=== PATIENT | male | born 1950 | race Caucasian/White ===

== ENCOUNTER 2017-04-23 07:25 | Inpatient (IN) | payer BC, OTHER ==
[2017-04-15 15:51] VITALS: BMI 26.0
[2017-04-23] MEDS ORDERED: CEFAZOLIN 2 GM/D5W 50 ML IVPB ONE (07:40)
[2017-04-23] MEDS ORDERED: TRANEXAMIC ACID 1000 MG/10 ML VIAL IVPUSH ONE (07:40)
[2017-04-23] MEDS ORDERED: GABAPENTIN 300 MG CAPSULE (FP) PO ONE (07:40)
[2017-04-23] MEDS ORDERED: CELECOXIB 200 MG CAPSULE PO ONE (08:04)
[2017-04-23] MEDS ORDERED: oxyCODONE HCL 10 MG SUSTAINED ACTING TABLET PO ONE (08:04)
[2017-04-23] MEDS ORDERED: ceFAZolin SODIUM 1 GM VIAL ONE (10:10)
[2017-04-23] MEDS ORDERED: TRANEXAMIC ACID 1000 MG/10 ML VIAL ONE ×2 (10:10→10:48)
[2017-04-23] MEDS ORDERED: MIDAZOLAM HCL 2 MG/2 ML SINGLE DOSE VIAL ONE ×2 (10:54→11:38)
[2017-04-23] MEDS ORDERED: VANCOMYCIN 1,000 MG VIAL (RESTRICTED TO ID ONLY) IVPB ONE (11:59)
[2017-04-23] MEDS ORDERED: oxyCODONE HCL 5 MG TABLET PO PRN (12:45)
[2017-04-23] MEDS ORDERED: MAG HYDROX/AL HYDROX/SIMETH 30 ML UNIT-DOSE CUP PO PRN (12:53)
[2017-04-23] MEDS ORDERED: ONDANSETRON 4 MG/2 ML VIAL IVPUSH PRN (12:53)
[2017-04-23] MEDS ORDERED: LACTATED RINGERS SOLUTION 1,000 ML IV SCH (13:00)
[2017-04-23] MEDS: ACETAMINOPHEN 325 MG TABLET (FP) PO SCH ×3 (13:10→20:20)
--- NOTE | 2017-04-23 13:22 | OP ---
Operative Note - Note: Operative Date: 04/23/17 Pre-Operative Diagnosis: left knee osteoarthritis Operation: left knee bebe assisted total arthroplasty Implants: tato triathalon Post-Operative Diagnosis: Same as Pre-op Surgeon: Joselito Anne Cylinder Devalver: Romelia Luevano Anesthesiologist/EMPLOYEE REPRESENTATIVE: Jose Denise Anesthesia: Spinal Specimens Removed: left proximal tibia and distal femur Estimated Blood Loss (mls): 200 Fluid Volume Replaced (mls): 1,200 Operative Report Dictated: Yes
--- NOTE | 2017-04-23 13:24 | SURG ---
Surgery Hearings Reporter Note Hearings Reporter: Romelia Luevano PA-C Date of Service: 04/23/17 Diagnosis: left knee osteoarthritis Procedure: Left knee Trent assisted total arthroplasty I was present for the entirety of the operative procedure. For further detail, please refer to operative report. Visit type - Case Type Case Type: Scheduled Admission - Emergency Emergency Visit: No - New patient This patient is new to me today: Yes Date on this admission: 04/23/17
--- NOTE | 2017-04-23 14:42 | OP ---
DATE OF OPERATION: 04/23/2017 PREOPERATIVE DIAGNOSIS: Degenerative joint disease of the left knee. POSTOPERATIVE DIAGNOSIS: Degenerative joint disease of the left knee. PROCEDURE: Left total knee replacement with robotic-assisted navigation (Makoplasty). SURGICAL ATTENDING: Joselito Anne M.D. CREDIT UNION FIELD EXAMINER: SID Luevano ANESTHESIA: Regional and spinal. CLOSURE: A press-fit 6 femur, 7 tibia, 11 polyethylene, and a cemented 38 patella, FabZat components. Number 1 Vicryl fascia, 0 and 2-0 subcutaneous, 3-0 Monocryl subcuticular with skin glue for skin, 4-0 undyed Vicryl for pin sites. ESTIMATED BLOOD LOSS: Less than 200 mL. No tourniquet was used. COMPLICATIONS: None. CONDITION: To recovery room in stable condition. DESCRIPTION OF OPERATIVE PROCEDURE: Patient was taken to the operating room on April 23, 2017. Regional and spinal anesthesia was administered by the anesthesiologist. IV Kefzol and TXA were administered prophylactically The left lower extremity was prepped and draped in the usual sterile fashion. A 10 to 12-cm longitudinal incision centered over the patella was incised. Hemostasis was achieved with Bovie cautery. Sharp dissection was carried down to the level of the extensor mechanism with sufficient flaps to perform the procedure. A medial parapatellar arthrotomy was then performed using a 10 blade. The patella was inverted. The knee was flexed up. Hemostasis was again achieved using the Bovie cautery. Subperiosteal dissection was done on the anteromedial proximal tibia until the knee was able to be brought forward. This was facilitated by taking the ACL, the PCL and the meniscal remnants. The checkpoints were malleted into the tibia and into the femur. Two threaded pins were drilled in a parallel fashion from anteroposterior proximal to the knee through the previously made incision, through the anterior cortex, then engaging the notch of the posterior cortex. Two more threaded pins were placed in parallel fashion through 2 small stab incisions one handbreadth below the tibial tubercle, again through the anterior cortex and just engaging the posterior cortex. To each of these series of pins were fastened the navigation arrays. The knee was then registered with the navigation device with center of rotation of the hip, medial and lateral malleoli, and multiple points on both the femur and the tibia. Excellent registration was confirmed by "popping the bubbles." Osteophytes were then removed. The knee was then tensioned in extension and in flexion to ascertain gaps. The virtual positions of the components were then optimized to ensure equal gaps in both flexion and extension. The robot was then brought into the field and was registered. The robot was then used to cut the femur and the tibia as per our plan. The femoral component box was then made using the box folding machine operator. A trial femoral component was applied. The tibial component was allowed to "find itself," and was clipped into place. It was ensured to be in the appropriate external rotation visually as well as confirmation being obtained by the navigation device. The knee was taken through a range of motion, and found to have excellent stability in flexion and extension, with range of motion from 0 to 140 degrees. The patella was osteotomized down to the appropriate level after it was calipered for thickness. A 38 lollipop was used to drill the lug holes in the patella and a 38 trial button was applied. The knee was taken through a range of motion and found to have excellent tracking of the patella throughout range of motion. Trial components were removed. The lug holes and the femur were placed, as well as the keel was punched. The knee was thoroughly irrigated with antibiotics. The real press-fit implants in the femur were malletted into place, as well as in the tibia. Then an 11-mm insert was applied. The patellar component was cemented in using modern generation cement techniques and antibiotic cement, with pressurization. After the cement was hardened and all excess cement was removed, the knee was taken through a range of motion and found to have again excellent tracking of the patella throughout the rom with excellent stability. The knee was thoroughly irrigated again. Vancomycin powder was applied into the knee joint. The medial parapatellar arthrotomy was then closed using number 1 Vicryl interrupted suture. After closure, the knee was taken through a range of motion, and found to have no undue tension on the repair. The subcutaneous was pulse antibiotic irrigated, and was then with 0 and 2-0 Vicryl, 3-0 Monocryl subcuticular with the skin glue for the skin, and 4-0 undyed Vicryl for pin sites. A sterile Aquacel dressing was applied, followed by a Espinal dressing. The patient was awakened from anesthesia and transferred to recovery room in stable condition. JOSELITO ANNE M.D. [id number]
[2017-04-23] MEDS: oxyCODONE HCL 5 MG TABLET PO PRN ×3 (14:44→23:17)
[2017-04-23] MEDS: CEFAZOLIN 1 GM/D5W 50 ML IVPB SCH (17:25)
[2017-04-23] MEDS: FERROUS SO4 325 MG TABLET (FP) PO SCH (21:51)
[2017-04-23] MEDS: oxyCODONE HCL 10 MG SUSTAINED ACTING TABLET PO SCH (21:51)
[2017-04-23] MEDS: SENNOSIDES/DOCUSATE COMBO (SENNA PLUS) TABLET (UD) PO SCH (21:51)
[2017-04-23] MEDS: ASCORBIC ACID 500 MG TABLET (FP) PO SCH (21:51)
[2017-04-23] MEDS: GABAPENTIN 300 MG CAPSULE (FP) PO SCH (21:51)
[2017-04-23] MEDS ORDERED: GABAPENTIN 300 MG CAPSULE (FP) PO SCH (22:00)
[2017-04-24] MEDS: ACETAMINOPHEN 325 MG TABLET (FP) PO SCH ×5 (01:26→21:00)
[2017-04-24] MEDS: CEFAZOLIN 1 GM/D5W 50 ML IVPB SCH (01:27)
[2017-04-24 08:31] LABS: MCH 33.1 pg (25.7-33.7); MEAN CELL VOLUME 94.6 fl (80-96); MEAN PLT VOLUME 8.6 fl (7.5-11.1); PLATELET COUNT 177 K/MM3 (134-434); RDW 12.4 % (11.9-15.9)
[2017-04-24] MEDS: ASPIRIN 325 MG TABLET PO SCH (08:35)
[2017-04-24 08:42] LABS: ANION GAP 8 (8-16); CALCIUM 9.1 mg/dl (8.4-10.2); CO2 26 mmol/L (22-28); CREATININE 0.9 mg/dl (0.6-1.3); GLUCOSE,RANDOM 153 mg/dl (74-106)
[2017-04-24] MEDS: SENNOSIDES/DOCUSATE COMBO (SENNA PLUS) TABLET (UD) PO SCH ×2 (09:50→22:00)
[2017-04-24] MEDS: PANTOPRAZOLE 40 MG TABLET (FP) PO SCH (09:50)
[2017-04-24] MEDS: FERROUS SO4 325 MG TABLET (FP) PO SCH ×3 (09:50→22:06)
[2017-04-24] MEDS: MULTIVITAMINS (DAILY MVI) TABLET (FP) PO SCH (09:50)
[2017-04-24] MEDS: GABAPENTIN 300 MG CAPSULE (FP) PO SCH ×2 (09:50→22:00)
[2017-04-24] MEDS: oxyCODONE HCL 10 MG SUSTAINED ACTING TABLET PO SCH ×2 (09:51→22:00)
[2017-04-24] MEDS: ASCORBIC ACID 500 MG TABLET (FP) PO SCH ×2 (09:51→22:00)
[2017-04-24] MEDS ORDERED: MULTIVITAMINS (DAILY MVI) TABLET (FP) PO SCH (10:00)
--- NOTE | 2017-04-24 10:44 | PN ---
Progress Note (short form) - Note Progress Note: AVSS COMFORTASBLE BANDAGES DRY AND INTACT CALF SOFT AND NT NVI + STRAIGHT LEG RAISE ABILITY AROM 0=90 IMP: DOING WELL PLAn: OOB, PT, DC TOMORROW
--- NOTE | 2017-04-24 13:54 | PN ---
Progress Note (short form) - Note Progress Note: Patient Seen. Doing well pod #1 after NISA Lt TKR. Doing well. No sign/v/ pruritis/sedation. Po anlgesics prn. OOB-->chair without much difficulty. Cont current managment
[2017-04-24] MEDS: oxyCODONE HCL 5 MG TABLET PO PRN ×2 (15:15→20:58)
[2017-04-25] MEDS: ACETAMINOPHEN 325 MG TABLET (FP) PO SCH ×2 (03:32→07:56)
[2017-04-25] MEDS: oxyCODONE HCL 5 MG TABLET PO PRN ×2 (03:40→09:29)
[2017-04-25 05:35] VITALS: BP 141/71; PULSE 97; TEMP 99
[2017-04-25 07:43] LABS: MCH 32.1 pg (25.7-33.7); MCHC 34.3 g/dl (32.0-35.9); MEAN CELL VOLUME 93.6 fl (80-96); MEAN PLT VOLUME 8.2 fl (7.5-11.1); PLATELET COUNT 174 K/MM3 (134-434); RDW 12.7 % (11.9-15.9)
[2017-04-25] MEDS: ASPIRIN 325 MG TABLET PO SCH (07:54)
[2017-04-25] MEDS: oxyCODONE HCL 10 MG SUSTAINED ACTING TABLET PO SCH (09:30)
[2017-04-25] MEDS: FERROUS SO4 325 MG TABLET (FP) PO SCH (09:31)
[2017-04-25] MEDS: SENNOSIDES/DOCUSATE COMBO (SENNA PLUS) TABLET (UD) PO SCH (09:31)
[2017-04-25] MEDS: GABAPENTIN 300 MG CAPSULE (FP) PO SCH (09:31)
[2017-04-25] MEDS: PANTOPRAZOLE 40 MG TABLET (FP) PO SCH (09:31)
[2017-04-25] MEDS: ASCORBIC ACID 500 MG TABLET (FP) PO SCH (09:32)
[2017-04-25] MEDS: MULTIVITAMINS (DAILY MVI) TABLET (FP) PO SCH (09:32)
--- NOTE | 2017-04-26 12:17 | PATH ---
Surgical Pathology Report Patient Name: CALE MCCOY Med. Rec. #: [id number] /Age/Gender: 1950 (Age: 66) / M Account: [id number] Location: [facility] MED-SURG Taken: 04/23/2017 Received: 04/24/2017 Reported: 04/26/2017 Physicians: Joselito Anne M.D. Specimen(s) Received LEFT KNEE BONES Clinical History Osteoarthritis left knee Final Diagnosis BONE AND SOFT TISSUE, LEFT KNEE, REPLACEMENT: DEGENERATIVE JOINT DISEASE. Electronically Signed Elias Malin M.D. Gross Description Received in formalin labeled "left knee bones," is a 13.5 x 9.0 x 2.0 cm aggregate of multiple muhammad, irregular portions of bone and soft tissue. The tibial plateau measures 8.0 x 5.2 x 2.2 cm. There are multiple areas of eburnation present, measuring up to 2.3 cm in greatest dimension. The remaining articular surfaces are muhammad-yellow and diffusely granular. The underlying trabecular bone is yellow and hard. Return To Factory Clerk sections are submitted in one cassette, following decalcification. 04/24/201704/24/2017
== END 2017-04-25 14:20 | disposition home health service (06) | DRG 470 ==
LOC: FM/S 07:25
PROVIDERS: ADMIT Orthopaedic Surgery; ATTEND Orthopaedic Surgery
PROC: 8E0Y0CZ Robotic Assisted Procedure of Lower Extremity, Open Approach (ICD-10-PCS; 2017-04-23)
PROC: 0SRD069 Replacement of Left Knee Joint with Oxidized Zirconium on Polyethylene Synthetic Substitute, Cemented, Open Approach (ICD-10-PCS; principal; 2017-04-23 09:30)
DX: M17.12 Unilateral primary osteoarthritis, left knee (principal)
CPT/HCPCS: 36415; 73560-TC-LT; 80048; 85027; 88304-TC; 88311-TC; 94010; 94760; 97116-GP; 97162-GP

== ENCOUNTER 2018-01-17 12:33 | Inpatient (IN) | payer OTHER, BC ==
--- NOTE | 2018-01-17 12:49 | PDOC ---
History of Present Illness - General Chief Complaint: Pain Stated Complaint: ABD PAIN Time Seen by Provider: 01/17/18 12:48 History Source: Patient - History of Present Illness Initial Comments: 01/17/18 14:41 67m with pmh of Hep C and GERD presents with 3 days of epigastric pain. Pain started Saturday after eating a huge meal of BBQ, donuts and coffee with triggered profuse vomiting all day, retching the next day with some sweats and fever. Presented today with continuing pain to Dr. Parsons's office who directed him to our ED. History of Hep C successfully [place] [address] 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.) Seizures: No Thyroid Disease: No - Surgical History Abdominal Surgery: No Appendectomy: No Cardiac Surgery: No Cholecystectomy: No Lung Surgery: No Neurologic Surgery: No Orthopedic Surgery: No - Suicide/Smoking/Psychosocial Hx Smoking History: Former smoker Have you smoked in the past 12 months: No If you are a former smoker, when did you quit?: 2013 Information on smoking cessation initiated: No Hx Alcohol Use: No Drug/Substance Use Hx: No Substance Use Type: None Hx Substance Use Treatment: No *Physical Exam - Vital Signs Last Vital Signs Temp Pulse Resp BP Pulse Ox 98.3 F 88 18 150/79 99 01/17/18 12:40 01/17/18 12:40 01/17/18 12:40 01/17/18 12:40 01/17/18 12:40 ED Treatment Course - LABORATORY CBC & Chemistry Diagram: 01/17/18 14:22 01/17/18 14:22 Medical Decision Making - Medical Decision Making 01/17/18 16:40 Elevated liver enzymes and bilirubin. Spoke to Dr. Parsons who asked for admission and MCRP order. Spoke to PCP Dr. Price who asked for the patient to be admitted under Dr. Reynoso. 01/17/18 17:29 Elevated lipase in the 20,000. This is likely Gallstone Pancreatitis 01/17/18 17:34 *DC/Admit/Observation/Transfer Diagnosis at time of Disposition: Biliary obstruction, Acute gallstone pancreatitis - Discharge Dispostion Decision to Admit order: Yes - Referrals - Patient Instructions - Post Discharge Activity
[2018-01-17] MEDS ORDERED: SODIUM CHLORIDE 0.9% 1000 ML INFUS.BAG IV ONE (14:27)
[2018-01-17] MEDS ORDERED: ACETAMINOPHEN 1000 MG/100 ML VIAL (NON FORMULARY) IVPB ONE (14:32)
[2018-01-17] MEDS ORDERED: HYDROmorphone HCL 2 MG TABLET PO ONE (14:33)
[2018-01-17] MEDS ORDERED: ACETAMINOPHEN INJECTION 100 ML IVPB ONE (14:34)
[2018-01-17] MEDS ORDERED: HYDROmorphone HCL 2 MG TABLET ONE (14:35)
[2018-01-17 14:36] LABS: BASO % 0.3 % (0-2.0); HEMOGLOBIN 15.5 GM/dL (11.7-16.9); MCH 31.9 pg (25.7-33.7); MCHC 34.5 g/dl (32.0-35.9); MEAN CELL VOLUME 92.5 fl (80-96); MEAN PLT VOLUME 7.7 fl (7.5-11.1); MONO % 7.7 % (3.8-10.2); PLATELET COUNT 207 K/MM3 (134-434); RBC 4.86 M/mm3 (4.00-5.60); RDW 13.3 % (11.9-15.9); WHITE BLOOD COUNT 9.9 K/mm3 (4.0-10.0)
[2018-01-17 14:50] LABS: INR 1.07 (0.83-1.09); PROTHROMBIN TIME (PATIENT) 12.1 SEC (9.7-13.0)
--- NOTE | 2018-01-17 15:30 | PDOC ---
Attending Attestation - Resident Resident Name: Harry Moore - ED Attending Attestation I have performed the following: I have examined & evaluated the patient, The case was reviewed & discussed with the resident, I agree w/resident's findings & plan, Exceptions are as noted - Physicial Exam PE: 01/17/18 15:14 awake alert lungs clear bilaterally heart rrr no mrg. abd soft ruq epigastric ttp. no rebound no guarding. ext wwp no edema. nuero alert oriented x 3 - Medical Decision Making 01/17/18 15:14 differetntial diagnosis : cholecystitis pancreatitis, gastritis sbp. pyeloneprhitis. plan bedside us ruq, labs lipase fluids, rectal temp ua cultures and lactate focused ED ultrasound rUQ performed indication RUQ pain gallbladderscanned in two planes with curvilinear probe gallbladder completely opacified with gallstones, wall edematous. noted pericholecystic fluid. wall echo shadow sign present. positive sonographic redmond's cbd normal 3.89 mm impression: MARGO sign, likely cholecysitis <Colette Hernández - Last Filed: 01/17/18 15:14> - HPI HPI: 01/17/18 15:38 The patient is a 67 year old male, with a significant PMH of Hep C (treated with antiviral, liver doing better) and gallstones, who presents to the emergency department complaining of abdomen pain that began approximately 3 days ago. The patients states constant epigastric pain that radiates to the RUQ and is accompanied with fevers, back and spine pain. The patient notes pain and vomiting began after having a BBQ meal, donuts and coffee 3 days ago . The patient denies chest pain, shortness of breath, headache and dizziness. Denies chills, nausea, vomit, diarrhea and constipation. Denies dysuria, frequency, urgency and hematuria. Allergies: morphine Past surgical history: None reported Social history: Former smoker (quit 2013) but denies alcohol and recreational drug use. PCP: Ken Price Documentation prepared by Lv Lyons, acting as nurses medical assistants phlebotomists for Colette Hernández MD. <Lv Lyons - Last Filed: 01/17/18 17:28>
[2018-01-17 15:38] LABS: ALBUMIN 4.4 g/dl (3.4-5.0); ALK PHOS 277 U/L (45-117); ANION GAP 10 (8-16); BILIRUBIN,TOTAL 6.5 mg/dL (0.2-1.0); BLOOD UREA NITROGEN 18 mg/dL (7-18); CALCIUM 9.9 mg/dL (8.5-10.1); CHLORIDE 103 mmol/L (98-107); CO2 27 mmol/L (21-32); CREATININE 1.1 mg/dL (0.7-1.3); GLUCOSE,RANDOM 95 mg/dL (74-106); POTASSIUM 4.1 mmol/L (3.5-5.1); SODIUM 140 mmol/L (136-145); TOT PROT 7.7 g/dl (6.4-8.2)
[2018-01-17 15:39] LABS: SGOT/AST 412 U/L (15-37); SGPT/ALT 625 U/L (12-78)
[2018-01-17] MEDS ORDERED: ONDANSETRON 4 MG/2 ML VIAL IVPUSH ONE (16:02)
[2018-01-17 16:44] LABS: BILIRUBIN,DIRECT 5.1 mg/dL (0.0-0.2)
[2018-01-17 16:49] LABS: LIPASE 19733 U/L (73-393)
[2018-01-17] MEDS ORDERED: SODIUM CHLORIDE 1,000 ML IV STA (17:35)
[2018-01-17] MEDS: KETOROLAC TROMETHAMINE 15 MG/ML VIAL IVPUSH PRN (18:54)
[2018-01-17] MEDS: SODIUM CHLORIDE 1,000 ML IV SCH (18:56)
[2018-01-18] MEDS: KETOROLAC TROMETHAMINE 15 MG/ML VIAL IVPUSH PRN ×4 (01:21→22:15)
[2018-01-18] MEDS: SODIUM CHLORIDE 1,000 ML IV SCH (05:02)
--- NOTE | 2018-01-18 08:04 | CON.GI ---
Consult Consult Specialty:: GI Referred by:: Dr Moore Reason for Consultation:: Pancreatitis,jaundice, cholelithiasis - History of Present Illness Chief Complaint: 67 y.o. man with 3 days of epigastric pain, nausea, initial vomiting. Seen by me yesterday in office (see my office note from yesterday in paper chart). Yesterday had absent bowel sounds,diffuse upper abdominal tenderness. Past h/o HCV, known gallstones. - History Source History Provided By: Patient Limitations to Obtaining History: No Limitations - Past Medical History Hepatobiliary: Yes: Cholelithiasis, Hepatitis C - Past Surgical History Past Surgical History: Yes: None - Alcohol/Substance Use Hx Alcohol Use: No - Smoking History Smoking history: Former smoker Have you smoked in the past 12 months: No If you are a former smoker, when did you quit?: 2013 - Social History Usual Living Arrangement: Alone Home Medications - Allergies Allergies/Adverse Reactions: Allergies Allergy/AdvReac Type Severity Reaction Status Date / Time morphine AdvReac Severe Difficulty Verified 01/17/18 12:39 Breathing - Home Medications Home Medications: Ambulatory Orders Vitamin E 1,000 unit PO DAILY 12/22/13 Multivitamin [One Daily] 1 each PO DAILY 04/15/17 Review of Systems - Review of Systems Constitutional: reports: Night Sweats Gastrointestinal: reports: Abdominal Pain, Nausea Physical Exam-GI Vital Signs: Vital Signs Temperature 98.5 F 01/18/18 01:25 Pulse Rate 89 01/18/18 02:34 Respiratory Rate 18 01/18/18 02:34 Blood Pressure 156/80 01/18/18 02:34 O2 Sat by Pulse Oximetry (%) 98 01/17/18 19:40 Constitutional: Yes: Well Nourished Eyes: Yes: Sclera Icterus HENT: Yes: Atraumatic Neck: Yes: Supple Cardiovascular: Yes: Regular Rate and Rhythm Respiratory: Yes: Regular Gastrointestinal Inspection: Yes: Distention ...Auscultate: Yes: Normoactive Bowel Sounds ...Palpate: Yes: Tenderness, Epigastium ...Rectal Exam: Yes: Deferred Extremities: Yes: WNL Edema: No Neurological: Yes: Alert, Oriented ...Motor Strength: WNL Psychiatric: Yes: WNL Labs: CBC, BMP 01/17/18 14:22 01/17/18 14:22 INR, PTT INR 1.07 (0.83-1.09) 01/17/18 14:22 Imaging - Results Ultrasound: Report Reviewed, Image Reviewed Problem List - Problems (1) Acute gallstone pancreatitis Code(s): K85.10 - BILIARY ACUTE PANCREATITIS WITHOUT NECROSIS OR INFECTION Assessment/Plan Pt is much improved over yesterday morning. He has active bowel sounds, tenderness is less today. No biliary tract dilation noted on ultrasound. Differential diagnosis is between gallstone pancreatitis and pancreatic tumor. Gallstone pancreatitis more likely and the absence of biliary tract dilation suggests that he passed a small stone through the major papilla. Current best management of biliary pancreatitis is: 1) Allow the acute pancreatitis to subside. 2) Intervene early with ERCP only if the patient develops cholangitis -- which he clearly does not have (no fever, normal WBC, no sign of sepsis). 3) MRCP/MRI pancreas to noninvasively image pancreas and biliary tree. 4) IV hydration. 5) Early feeding is now considered protective. So my recommendations are for 1) increase IV rate to 150 cc/hr Ringer's lactate 2) Monitor CBC, lfts, lipase 3) MRI pancreas/MRCP 4) Begin feeding after MRI. If MRCP shows stone in bile duct, or if lfts fail to improve, then ERCP next week as pancreatitis subsides. MRCP is only 70-90% accurate and can miss tiny stones; however, ERCP has a complication rate of about 7% so it is not a procedure to be undertaken without a solid indication. As mentioned above, the indications would be either (1) choledocholithiasis documented on MRI, (2) cholangitis, or (3) failure of the jaundice to improve.
[2018-01-18 08:30] LABS: HEMOGLOBIN 13.6 GM/dL (11.7-16.9); MCH 32.4 pg (25.7-33.7); MCHC 34.9 g/dl (32.0-35.9); MEAN CELL VOLUME 92.8 fl (80-96); MEAN PLT VOLUME 7.6 fl (7.5-11.1); PLATELET COUNT 158 K/MM3 (134-434); RDW 13.4 % (11.9-15.9); WHITE BLOOD COUNT 13.5 K/mm3 (4.0-10.0)
[2018-01-18 09:09] LABS: ALBUMIN 3.4 g/dl (3.4-5.0); ALK PHOS 223 U/L (45-117); ANION GAP 7 (8-16); BILIRUBIN,TOTAL 1.5 mg/dL (0.2-1.0); BLOOD UREA NITROGEN 20 mg/dL (7-18); CALCIUM 8.6 mg/dL (8.5-10.1); CHLORIDE 105 mmol/L (98-107); CO2 27 mmol/L (21-32); CREATININE 0.9 mg/dL (0.7-1.3); GLUCOSE,RANDOM 75 mg/dL (74-106); POTASSIUM 3.7 mmol/L (3.5-5.1); SGOT/AST 166 U/L (15-37); SGPT/ALT 385 U/L (12-78); SODIUM 139 mmol/L (136-145); TOT PROT 6.5 g/dl (6.4-8.2)
[2018-01-18] MEDS: LACTATED RINGERS SOLUTION 1,000 ML/1,000 ML INFUS.BAG IV SCH ×3 (09:27→23:38)
[2018-01-18 09:29] LABS: LIPASE 3786 U/L (73-393)
--- NOTE | 2018-01-18 11:27 | HP ---
Admitting History and Physical - Primary Care Physician PCP: Norma Reynoso - Admission Chief Complaint: ADB PAIN/ACUTE PANCREATITIS History of Present Illness: 67m with pmh of Hep C and GERD presents with 3 days of epigastric pain. Pain started Saturday after eating a huge meal of BBQ, donuts and coffee with triggered profuse vomiting all day, retching the next day with some sweats and fever. Presented today with continuing pain to Dr. Parsons's office who directed him to our ED. History of Hep C successfully treated in [address] Larios History Source: Patient ( }), Medical Record Limitations to Obtaining History: Clinical Condition - Past Medical History Hepatobiliary: Yes: Cholelithiasis, Hepatitis C - Past Surgical History Past Surgical History: Yes: None - Smoking History Smoking history: Former smoker Have you smoked in the past 12 months: No If you are a former smoker, when did you quit?: 2013 - Alcohol/Substance Use Hx Alcohol Use: No Home Medications - Allergies Allergies/Adverse Reactions: Allergies Allergy/AdvReac Type Severity Reaction Status Date / Time morphine AdvReac Severe Difficulty Verified 01/17/18 12:39 Breathing - Home Medications Home Medications: Ambulatory Orders Vitamin E 1,000 unit PO DAILY 12/22/13 Multivitamin [One Daily] 1 each PO DAILY 04/15/17 Review of Systems - Review of Systems Constitutional: reports: Loss of Appetite, Weakness Eyes: reports: No Symptoms HENT: reports: No Symptoms Neck: reports: No Symptoms Cardiovascular: reports: No Symptoms Respiratory: reports: No Symptoms Gastrointestinal: reports: Abdominal Pain, Indigestion, Nausea Genitourinary: reports: No Symptoms Musculoskeletal: reports: No Symptoms Integumentary: reports: No Symptoms Neurological: reports: No Symptoms Endocrine: reports: No Symptoms Hematology/Lymphatic: reports: No Symptoms Psychiatric: reports: No Symptoms Physical Examination Vital Signs: Vital Signs Temperature 98.4 F 01/18/18 09:34 Pulse Rate 94 H 01/18/18 09:34 Respiratory Rate 18 01/18/18 09:34 Blood Pressure 140/72 01/18/18 09:34 O2 Sat by Pulse Oximetry (%) 98 01/18/18 09:00 Constitutional: Yes: Mild Distress Eyes: Yes: WNL HENT: Yes: WNL Neck: Yes: WNL Cardiovascular: Yes: WNL Respiratory: Yes: WNL Gastrointestinal: Yes: Tenderness Renal/: Yes: WNL Musculoskeletal: Yes: WNL Extremities: Yes: WNL Edema: No Peripheral Pulses WNL: Yes Integumentary: Yes: WNL Wound/Incision: Yes: Clean/Dry Neurological: Yes: WNL ...Motor Strength: WNL Psychiatric: Yes: WNL Labs: CBC, BMP 01/18/18 08:15 01/18/18 08:15 Imaging - Results Ultrasound: Report Reviewed Problem List - Problems (1) Hep C w/o coma, chronic Code(s): B18.2 - CHRONIC VIRAL HEPATITIS C (2) Acute gallstone pancreatitis Code(s): K85.10 - BILIARY ACUTE PANCREATITIS WITHOUT NECROSIS OR INFECTION (3) Biliary obstruction Code(s): K83.1 - OBSTRUCTION OF BILE DUCT Assessment/Plan NPO IVF PAIN CONTROL NO OPIODS WITH LIVER DISEASE AND PAST GI EVAL
--- NOTE | 2018-01-18 19:58 | CONSULT ---
Consult Consult Specialty:: General Surgery Referred by:: Dr. Reynoso Reason for Consultation:: gallstone pancreatitis - History of Present Illness Chief Complaint: abdominal pain, fever, n/v History of Present Illness: 67yo M with recent left knee revision surgery, h/o Hep C treated with Harvoni 2014 by GI (reportedly successfully), GERD, cholelithiasis and previous episode of pancreatitis in 2013 per pt, began experiencing central/generalized abdominal pain radiating upward and through to back after a meal on Saturday of BBQ ribs. , he then had fever and chills with sweating, N/V of undigested food (7 episodes), and the pain got even worse. He was seen by Dr. Parsons/GEORGE in the office the day prior to presenting to ER, where US showed contracted gallbladder with multiple stones but no cholecystitis, LFTs and lipase were very elevated, and wbc was normal. His last po was an egg on morning. Urine has been dark. He denies constipation or diarrhea at home, but has had some loose stools today. He is also passing gas. He has been kept NPO with IV fluids, and MRCP was just performed. Surgery was asked to evaluate. Today, wbc glendy to 13, but LFTs and lipase are coming down. He is seen and examined in bed, resting comfortably. Last pain med was Toradol ~3 hrs ago, which he states hasn't been helping much, but his pain is still starting to recede. GI has seen him, and is awaiting MRI results to determine if ERCP is indicated. He was jaundiced yesterday by chart notes, but is not currently. He denies alcohol use in the last 2 years, and social use prior to that. He is hungry. - History Source History Provided By: Patient Limitations to Obtaining History: No Limitations - Past Medical History Cardio/Vascular: Yes: Hyperlipdemia Gastrointestinal: Yes: GERD Hepatobiliary: Yes: Cholelithiasis, Hepatitis C (treated w/Harvoni 2014 successfully) Musculoskeletal: Yes: Osteoarthritis - Past Surgical History Past Surgical History: Yes: Joint Replacement (left knee with revision last month) - Alcohol/Substance Use Hx Alcohol Use: No (quit social use 2 yrs ago, heavier in 20s and 30s) History of Substance Use: reports: None - Smoking History Smoking history: Former smoker Have you smoked in the past 12 months: No If you are a former smoker, when did you quit?: 2013 - 1ppd +/- on/off for many years - Social History Usual Living Arrangement: Alone ADL: Independent Home Medications - Allergies Allergies/Adverse Reactions: Allergies Allergy/AdvReac Type Severity Reaction Status Date / Time morphine AdvReac Severe Difficulty Verified 01/17/18 12:39 Breathing - Home Medications Home Medications: Ambulatory Orders Vitamin E 1,000 unit PO DAILY 12/22/13 Multivitamin [One Daily] 1 each PO DAILY 04/15/17 Home Medications (free text): pt denied taking anything regularly Family Disease History - Family Disease History Family Disease History: Heart Disease: Father (heart attack at 52) Review of Systems - Review of Systems Constitutional: reports: Chills, Diaphoresis, Fever Eyes: reports: Other (wears glasses for distance). denies: Recent Change in Vision HENT: reports: Hearing Loss. denies: Difficult Swallowing, Throat Pain Neck: denies: Swollen Glands, Tenderness Cardiovascular: denies: Chest Pain, Palpitations Respiratory: reports: Cough. denies: SOB Gastrointestinal: reports: Abdominal Pain (with hpi), Diarrhea (loose stools in hospital), Nausea (with hpi), Vomiting (with hpi). denies: Constipation Genitourinary: denies: Burning, Dysuria Musculoskeletal: reports: Joint Swelling (left knee - recent surgery last month) . denies: Back Pain, Joint Pain, Muscle Pain Integumentary: reports: Incision (left knee, healing), Other (vitiligo forearms) . denies: Rash Neurological: reports: Headache. denies: Dizziness Physical Exam Vital Signs: Vital Signs Temperature 97.9 F 01/18/18 18:00 Pulse Rate 92 H 01/18/18 18:00 Respiratory Rate 18 01/18/18 18:00 Blood Pressure 154/75 01/18/18 18:00 O2 Sat by Pulse Oximetry (%) 98 01/18/18 09:00 Constitutional: Yes: Well Nourished, No Distress, Calm Eyes: Yes: Conjunctiva Clear, EOM Intact. No: Sclera Icterus HENT: Yes: Atraumatic, Normocephalic Neck: Yes: Supple, Trachea Midline Cardiovascular: Yes: Regular Rate and Rhythm (with ectopic beats), Murmur Respiratory: Yes: Regular, CTA Bilaterally Gastrointestinal: Yes: Normal Bowel Sounds, Soft, Tenderness (RUQ and epigastric , no tye/guarding), Tenderness, Epigastrium. No: Distention, Tenderness, Rebound ...Rectal Exam: Yes: Deferred Renal/: No: CVA Tenderness - Left, CVA Tenderness - Right Musculoskeletal: Yes: Joint Stiffness (minimal left knee - almost full ROM), Joint Swelling (left knee) Extremities: No: Cool, Cyanosis Edema: Yes (left knee) Peripheral Pulses WNL: Yes Integumentary: Yes: Incision (left knee, healing), Other (vitiligo, bilat forearms). No: Jaundice, Rash Wound/Incision: Yes: Clean/Dry, Well Approximated (left knee), Open to air. No : Reddened Neurological: Yes: Alert, Oriented Psychiatric: Yes: Alert, Oriented Labs: CBC, BMP 01/18/18 08:15 01/18/18 08:15 CMP Sodium 139 mmol/L (136-145) 01/18/18 08:15 Potassium 3.7 mmol/L (3.5-5.1) 01/18/18 08:15 Chloride 105 mmol/L (98-107) 01/18/18 08:15 Carbon Dioxide 27 mmol/L (21-32) 01/18/18 08:15 Anion Gap 7 (8-16) L 01/18/18 08:15 BUN 20 mg/dL (7-18) H 01/18/18 08:15 Creatinine 0.9 mg/dL (0.7-1.3) 01/18/18 08:15 Creat Clearance w eGFR > 60 (>60) 01/18/18 08:15 Random Glucose 75 mg/dL (74-106) D 01/18/18 08:15 Lactic Acid 1.1 mmol/L (0.0-2.0) 01/17/18 14:00 Calcium 8.6 mg/dL (8.5-10.1) 01/18/18 08:15 Total Bilirubin 1.5 mg/dL (0.2-1.0) H D 01/18/18 08:15 Direct Bilirubin 5.1 mg/dL (0.0-0.2) H 01/17/18 14:22 AST 166 U/L (15-37) H D 01/18/18 08:15 ALT 385 U/L (12-78) H D 01/18/18 08:15 Alkaline Phosphatase 223 U/L (45-117) H D 01/18/18 08:15 Total Protein 6.5 g/dl (6.4-8.2) 01/18/18 08:15 Albumin 3.4 g/dl (3.4-5.0) 01/18/18 08:15 Lipase 3786 U/L (73-393) H 01/18/18 08:15 wbc up from 9 bili down from 6.5/5.1 yesterday (T/D) AST/ALT, alk phos down lipase down from 19K INR, PTT INR 1.07 (0.83-1.09) 01/17/18 14:22 Imaging - Results Ultrasound: Report Reviewed (cholelithiasis with contracted gallbladder, normal cbd, no pericholecystic fluid) MRI: Image Reviewed (MRCP just done, report pending - images reviewed, gallbladder full of small stones) Problem List - Problems (1) Acute gallstone pancreatitis Assessment/Plan: MRCP just done, await report GI consult noted, pt may need ERCP agree with NPO/IVF until pain/tenderness improve and MRCP finalized generous IV hydration trend labs pain meds prn, nonnarcotics first line GI/DVT prophylaxis discussed potential laparoscopic possible open cholecystectomy with patient will await clarification of need for GI intervention first will further discuss R/B/A of surgery as indicated IF MRCP negative for choledocholithiasis and IF pain/tenderness further improved tomorrow and IF labs continue to improve may consider clears prior to surgery discussed earlier with Dr. Reynoso Code(s): K85.10 - BILIARY ACUTE PANCREATITIS WITHOUT NECROSIS OR INFECTION (2) Calculus of gallbladder and bile duct with obstruction without cholecystitis Assessment/Plan: see above Code(s): K80.71 - CALCULUS OF GB AND BILE DUCT W/O CHOLECYST W OBSTRUCTION (3) Generalized abdominal pain Assessment/Plan: improving slowly - had pain meds about 3 hrs ago and at least twice today Code(s): R10.84 - GENERALIZED ABDOMINAL PAIN (4) Nausea and vomiting Assessment/Plan: appears resolved Code(s): R11.2 - NAUSEA WITH VOMITING, UNSPECIFIED Qualifiers: Vomiting type: unspecified Vomiting Intractability: non-intractable Qualified Code(s): R11.2 - Nausea with vomiting, unspecified (5) Fever presenting with conditions classified elsewhere Assessment/Plan: 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
[2018-01-19] MEDS: LACTATED RINGERS SOLUTION 1,000 ML/1,000 ML INFUS.BAG IV SCH ×3 (06:26→13:08)
[2018-01-19] MEDS: KETOROLAC TROMETHAMINE 15 MG/ML VIAL IVPUSH PRN ×3 (06:43→20:59)
[2018-01-19 08:02] LABS: HEMOGLOBIN 12.4 GM/dL (11.7-16.9); MCH 32.6 pg (25.7-33.7); MCHC 35.5 g/dl (32.0-35.9); MEAN CELL VOLUME 91.8 fl (80-96); MEAN PLT VOLUME 7.9 fl (7.5-11.1); PLATELET COUNT 139 K/MM3 (134-434); RBC 3.81 M/mm3 (4.00-5.60); RDW 13.2 % (11.9-15.9); WHITE BLOOD COUNT 10.3 K/mm3 (4.0-10.0)
--- NOTE | 2018-01-19 08:22 | PN ---
Progress Note (short form) - Note Progress Note: Surgical consult appreciated. Pt still has discomfort but is hungry. WBC down to 10.3 today. Bilirubin, lipase, CBC,liver chemistries, lipase all down. WBC 10.3 K/mm3 (4.0-10.0) H 01/19/18 06:15 RBC 3.81 M/mm3 (4.00-5.60) L 01/19/18 06:15 Hgb 12.4 GM/dL (11.7-16.9) 01/19/18 06:15 Hct 35.0 % (35.4-49) L 01/19/18 06:15 MCV 91.8 fl (80-96) 01/19/18 06:15 MCH 32.6 pg (25.7-33.7) 01/19/18 06:15 MCHC 35.5 g/dl (32.0-35.9) 01/19/18 06:15 RDW 13.2 % (11.9-15.9) 01/19/18 06:15 Plt Count 139 K/MM3 (134-434) 01/19/18 06:15 MPV 7.9 fl (7.5-11.1) 01/19/18 06:15 Absolute Neuts (auto) 8.5 # 01/17/18 14:22 Neutrophils % 86.0 % (42.8-82.8) H D 01/17/18 14:22 Lymphocytes % 6.0 % (8-40) L D 01/17/18 14:22 Monocytes % 7.7 % (3.8-10.2) 01/17/18 14:22 Eosinophils % 0.0 % (0-4.5) D 01/17/18 14:22 Basophils % 0.3 % (0-2.0) 01/17/18 14:22 Nucleated RBC % 0 % (0-0) 01/17/18 14:22 Sodium 139 mmol/L (136-145) 01/18/18 08:15 Potassium 3.7 mmol/L (3.5-5.1) 01/18/18 08:15 Chloride 105 mmol/L (98-107) 01/18/18 08:15 Carbon Dioxide 27 mmol/L (21-32) 01/18/18 08:15 Anion Gap 7 (8-16) L 01/18/18 08:15 BUN 20 mg/dL (7-18) H 01/18/18 08:15 Creatinine 0.9 mg/dL (0.7-1.3) 01/18/18 08:15 Creat Clearance w eGFR > 60 (>60) 01/18/18 08:15 Random Glucose 75 mg/dL (74-106) D 01/18/18 08:15 Lactic Acid 1.1 mmol/L (0.0-2.0) 01/17/18 14:00 Calcium 8.6 mg/dL (8.5-10.1) 01/18/18 08:15 Total Bilirubin 1.5 mg/dL (0.2-1.0) H D 01/18/18 08:15 Direct Bilirubin 5.1 mg/dL (0.0-0.2) H 01/17/18 14:22 AST 166 U/L (15-37) H D 01/18/18 08:15 ALT 385 U/L (12-78) H D 01/18/18 08:15 Alkaline Phosphatase 223 U/L (45-117) H D 01/18/18 08:15 Total Protein 6.5 g/dl (6.4-8.2) 01/18/18 08:15 Albumin 3.4 g/dl (3.4-5.0) 01/18/18 08:15 Lipase 3786 U/L (73-393) H 01/18/18 08:15 Vital Signs - 24 hr 01/18/18 01/18/18 01/18/18 09:00 09:34 14:01 Temperature 98.4 F 97.6 F Pulse Rate 94 H 84 Respiratory 18 18 17 Rate Blood Pressure 140/72 178/77 O2 Sat by Pulse 98 Oximetry (%) 01/18/18 01/18/18 01/19/18 18:00 21:00 06:00 Temperature 97.9 F 97.7 F Pulse Rate 92 H 84 Respiratory 18 18 18 Rate Blood Pressure 154/75 173/84 O2 Sat by Pulse 98 Oximetry (%) No fever. Abdomen: bowel sounds present, soft. MRI/MRCP not officially read yet. I have reviewed the films. In my (unofficial) reading the biliary tree is not dilated and there are no common bile duct stones. The gallbladder is chock full of small stones. The pancreatic body and tail are markedly edematous. Impression: Biliary pancreatitis, resolving. Plan: Begin clear liquids, advance diet as tolerated. Repeat CBC/CMP/lipase in a.m. Await radiologist interpretation of MRI/MRCP and serial chemistries before definitively ruling out need for ERCP. Problem List - Problems (1) Acute gallstone pancreatitis Code(s): K85.10 - BILIARY ACUTE PANCREATITIS WITHOUT NECROSIS OR INFECTION
[2018-01-19 08:35] LABS: CALCIUM 8.4 mg/dL (8.5-10.1); CHLORIDE 108 mmol/L (98-107); POTASSIUM 3.6 mmol/L (3.5-5.1); SODIUM 142 mmol/L (136-145)
[2018-01-19 08:41] LABS: ALBUMIN 2.8 g/dl (3.4-5.0); ALK PHOS 148 U/L (45-117); ANION GAP 10 (8-16); BLOOD UREA NITROGEN 20 mg/dL (7-18); CO2 24 mmol/L (21-32); CREATININE 0.6 mg/dL (0.7-1.3); GLUCOSE,RANDOM 79 mg/dL (74-106); SGOT/AST 59 U/L (15-37); SGPT/ALT 207 U/L (12-78); TOT PROT 5.6 g/dl (6.4-8.2)
[2018-01-19 08:55] LABS: LIPASE 565 U/L (73-393)
--- NOTE | 2018-01-19 11:29 | PN ---
Progress Note, Physician Chief Complaint: STILL HAS ABDOMINAL DISCOMFORT NO NAUSEA/VOMITING - Current Medication List Current Medications: Active Medications Lactated Ringer's (Lactated Ringers Solution) 1,000 ml in 1,000 mls @ 125 mls/ hr IV ASDIR MEIR Last Admin: 01/19/18 09:13 Dose: 125 mls/hr Ketorolac Tromethamine (Toradol Injection -) 15 mg IVPUSH Q6H PRN PRN Reason: PAIN LEVEL 7 - 10 Stop: 01/22/18 18:23 Last Admin: 01/19/18 06:43 Dose: 15 mg - Objective Vital Signs: Vital Signs Temperature 97.7 F 01/19/18 09:00 Pulse Rate 74 01/19/18 09:00 Respiratory Rate 18 01/19/18 09:00 Blood Pressure 151/82 01/19/18 09:00 O2 Sat by Pulse Oximetry (%) 98 01/18/18 21:00 Constitutional: Yes: Mild Distress Eyes: Yes: WNL HENT: Yes: WNL Neck: Yes: WNL Cardiovascular: Yes: WNL Respiratory: Yes: WNL Gastrointestinal: Yes: Tenderness Genitourinary: Yes: WNL Musculoskeletal: Yes: WNL Extremities: Yes: WNL Edema: No Integumentary: Yes: WNL Wound/Incision: Yes: Clean/Dry Neurological: Yes: WNL ...Motor Strength: WNL Psychiatric: Yes: WNL Labs: CBC, BMP 01/19/18 06:15 01/19/18 06:15 INR, PTT INR 1.07 (0.83-1.09) 01/17/18 14:22 Problem List - Problems (1) Hep C w/o coma, chronic Code(s): B18.2 - CHRONIC VIRAL HEPATITIS C (2) Acute gallstone pancreatitis Code(s): K85.10 - BILIARY ACUTE PANCREATITIS WITHOUT NECROSIS OR INFECTION (3) Biliary obstruction Code(s): K83.1 - OBSTRUCTION OF BILE DUCT Assessment/Plan CLEAR DIET CONTINUED IVF PAIN CONTROL NO OPIODS WITH LIVER DISEASE AND PAST GI EVAL APPRECIATED F/U LIPASE LABS IN AM
--- NOTE | 2018-01-19 14:59 | PN ---
Progress Note, Physician History of Present Illness: Pt with biliary pancreatitis, improving slowly. Labs normalizing, started on clears today. Tolerating with somewhat less pain. No nausea. Seen and examined in bed. - Current Medication List Current Medications: Active Medications Ketorolac Tromethamine (Toradol Injection -) 15 mg IVPUSH Q6H PRN PRN Reason: PAIN LEVEL 7 - 10 Stop: 01/22/18 18:23 Last Admin: 01/19/18 13:28 Dose: 15 mg - Objective Vital Signs: Vital Signs Temperature 97.4 F L 01/19/18 14:08 Pulse Rate 95 H 01/19/18 14:08 Respiratory Rate 15 01/19/18 14:08 Blood Pressure 177/81 01/19/18 14:08 O2 Sat by Pulse Oximetry (%) 94 L 01/19/18 09:00 Constitutional: Yes: Well Nourished, No Distress, Calm Eyes: Yes: Conjunctiva Clear, EOM Intact. No: Sclera Icterus HENT: Yes: Atraumatic, Normocephalic Gastrointestinal: Yes: Soft, Tenderness (RUQ, little less but still pronounced) , Tenderness, Epigastrium (little less but still pronounced). No: Distention, Tenderness, Rebound Extremities: Yes: Other (left knee healing incision, swollen). No: Cool, Cyanosis Integumentary: Yes: Incision (left knee). No: Jaundice, Rash Wound/Incision: Yes: Clean/Dry, Well Approximated, Open to air Neurological: Yes: Alert, Oriented Labs: CBC, BMP 01/19/18 06:15 01/19/18 06:15 CMP Sodium 142 mmol/L (136-145) 01/19/18 06:15 Potassium 3.6 mmol/L (3.5-5.1) 01/19/18 06:15 Chloride 108 mmol/L (98-107) H 01/19/18 06:15 Carbon Dioxide 24 mmol/L (21-32) 01/19/18 06:15 Anion Gap 10 (8-16) 01/19/18 06:15 BUN 20 mg/dL (7-18) H 01/19/18 06:15 Creatinine 0.6 mg/dL (0.7-1.3) L 01/19/18 06:15 Creat Clearance w eGFR > 60 (>60) 01/19/18 06:15 Random Glucose 79 mg/dL (74-106) 01/19/18 06:15 Calcium 8.4 mg/dL (8.5-10.1) L 01/19/18 06:15 Total Bilirubin 1.0 mg/dL (0.2-1.0) 01/19/18 06:15 Direct Bilirubin 5.1 mg/dL (0.0-0.2) H 01/17/18 14:22 AST 59 U/L (15-37) H D 01/19/18 06:15 ALT 207 U/L (12-78) H D 01/19/18 06:15 Alkaline Phosphatase 148 U/L (45-117) H D 01/19/18 06:15 Total Protein 5.6 g/dl (6.4-8.2) L 01/19/18 06:15 Albumin 2.8 g/dl (3.4-5.0) L 01/19/18 06:15 Lipase 565 U/L (73-393) H 01/19/18 06:15 wbc coming down LFTs normalizing lipase dropping K little low - ....Imaging MRI: Image Reviewed, Other (report pending) Problem List - Problems (1) Acute gallstone pancreatitis Assessment/Plan: MRCP done, await report GI consult noted, pt may need ERCP tolerating clears - would keep NPO after midnight for possible intervention would keep IVF with K+, consider lower rate continue to trend labs pain meds prn, nonnarcotics first line GI/DVT prophylaxis Discussed with patient risks, benefits and alternatives of laparoscopic possible open cholecystectomy, including but not limited to bleeding, infection , injury to adjacent structures, bile leak or ductal injury, intraabdominal abscess, hernia, need for further procedures; alternatives include delayed or no surgery - risks of this include recurrence of biliary pancreatitis, cholangitis, cholecystitis, sepsis. Patient desires to proceed with operation - will take to OR for above once duct cleared by MRCP or ERCP and tenderness more resolved. Informed consent signed for same. Possibly tomorrow, or will schedule for Saturday. Pt understands and agrees with plan. Code(s): K85.10 - BILIARY ACUTE PANCREATITIS WITHOUT NECROSIS OR INFECTION (2) Calculus of gallbladder and bile duct with obstruction without cholecystitis Assessment/Plan: see above Code(s): K80.71 - CALCULUS OF GB AND BILE DUCT W/O CHOLECYST W OBSTRUCTION (3) Generalized abdominal pain Assessment/Plan: improving Code(s): R10.84 - GENERALIZED ABDOMINAL PAIN (4) Nausea and vomiting Assessment/Plan: resolved Code(s): R11.2 - NAUSEA WITH VOMITING, UNSPECIFIED Qualifiers: Vomiting type: unspecified Vomiting Intractability: non-intractable Qualified Code(s): R11.2 - Nausea with vomiting, unspecified (5) Hep C w/o coma, chronic Assessment/Plan: treated 3 years ago with [facility] Code(s): B18.2 - CHRONIC VIRAL HEPATITIS C
[2018-01-19] MEDS: SODIUM CHLORIDE 0.45%/POT 20 MEQ/1,000 ML INFUS.BAG IV SCH (16:16)
[2018-01-20] MEDS: SODIUM CHLORIDE 0.45%/POT 20 MEQ/1,000 ML INFUS.BAG IV SCH ×2 (03:44→15:24)
[2018-01-20] MEDS: KETOROLAC TROMETHAMINE 15 MG/ML VIAL IVPUSH PRN ×3 (06:14→21:27)
[2018-01-20 08:22] LABS: HEMATOCRIT 37.1 % (35.4-49); HEMOGLOBIN 13.1 GM/dL (11.7-16.9); MCH 32.6 pg (25.7-33.7); MCHC 35.2 g/dl (32.0-35.9); MEAN CELL VOLUME 92.5 fl (80-96); MEAN PLT VOLUME 7.9 fl (7.5-11.1); PLATELET COUNT 172 K/MM3 (134-434); RBC 4.01 M/mm3 (4.00-5.60); RDW 13.2 % (11.9-15.9); WHITE BLOOD COUNT 8.9 K/mm3 (4.0-10.0)
[2018-01-20 09:12] LABS: ALBUMIN 3.1 g/dl (3.4-5.0); ANION GAP 8 (8-16); BLOOD UREA NITROGEN 13 mg/dL (7-18); CALCIUM 8.8 mg/dL (8.5-10.1); CHLORIDE 102 mmol/L (98-107); CO2 28 mmol/L (21-32); LIPASE 260 U/L (73-393); MAGNESIUM 1.8 mg/dL (1.8-2.4); POTASSIUM 3.5 mmol/L (3.5-5.1); SODIUM 138 mmol/L (136-145)
[2018-01-20 09:17] LABS: ALK PHOS 150 U/L (45-117); BILIRUBIN,TOTAL 0.9 mg/dL (0.2-1.0); CREATININE 0.8 mg/dL (0.7-1.3); GLUCOSE,RANDOM 90 mg/dL (74-106); PHOSPHOROUS 2.4 mg/dL (2.5-4.9); SGOT/AST 37 U/L (15-37); SGPT/ALT 165 U/L (12-78); TOT PROT 6.4 g/dl (6.4-8.2)
--- NOTE | 2018-01-20 13:33 | PN ---
Progress Note, Physician History of Present Illness: Pt with biliary pancreatitis, improving slowly. Labs almost normalized, tolerated clears yesterday, has been NPO after midnight. MRCP report negative for choledocholithiasis, + evidence of significant pancreatitis. No nausea. Seen and examined in bed, still with some pain, but less overall. Passing gas, still with loose stools. - Current Medication List Current Medications: Active Medications Potassium Chloride/Sodium Chloride (1/2ns+20meq Kcl) 20 meq in 1,000 mls @ 83 mls/hr IV ASDIR MEIR Last Admin: 01/20/18 03:44 Dose: 83 mls/hr Ketorolac Tromethamine (Toradol Injection -) 15 mg IVPUSH Q6H PRN PRN Reason: PAIN LEVEL 7 - 10 Stop: 01/22/18 18:23 Last Admin: 01/20/18 06:14 Dose: 15 mg - Objective Vital Signs: Vital Signs Temperature 98.2 F 01/20/18 06:00 Pulse Rate 66 01/20/18 06:00 Respiratory Rate 18 01/20/18 06:00 Blood Pressure 162/70 01/20/18 06:00 O2 Sat by Pulse Oximetry (%) 99 01/20/18 09:00 Constitutional: Yes: Well Nourished, No Distress, Calm Eyes: Yes: Conjunctiva Clear, EOM Intact. No: Sclera Icterus HENT: Yes: Atraumatic, Normocephalic Gastrointestinal: Yes: Soft, Tenderness (minimal RUQ), Tenderness, Epigastrium ( less but still definitely present). No: Distention, Tenderness, Rebound Musculoskeletal: Yes: Joint Stiffness (mild, left knee - improving ROM), Joint Swelling (left knee, less) Extremities: No: Cool, Cyanosis Integumentary: Yes: Incision (left knee healing). No: Jaundice, Rash Wound/Incision: Yes: Clean/Dry, Well Approximated (left knee), Open to air Neurological: Yes: Alert, Oriented Labs: CBC, BMP 01/20/18 07:20 01/20/18 07:20 CMP Sodium 138 mmol/L (136-145) 01/20/18 07:20 Potassium 3.5 mmol/L (3.5-5.1) 01/20/18 07:20 Chloride 102 mmol/L (98-107) 01/20/18 07:20 Carbon Dioxide 28 mmol/L (21-32) 01/20/18 07:20 Anion Gap 8 (8-16) 01/20/18 07:20 BUN 13 mg/dL (7-18) 01/20/18 07:20 Creatinine 0.8 mg/dL (0.7-1.3) 01/20/18 07:20 Creat Clearance w eGFR > 60 (>60) 01/20/18 07:20 Random Glucose 90 mg/dL (74-106) 01/20/18 07:20 Lactic Acid 1.1 mmol/L (0.0-2.0) 01/17/18 14:00 Calcium 8.8 mg/dL (8.5-10.1) 01/20/18 07:20 Phosphorus 2.4 mg/dL (2.5-4.9) L 01/20/18 07:20 Magnesium 1.8 mg/dL (1.8-2.4) 01/20/18 07:20 Total Bilirubin 0.9 mg/dL (0.2-1.0) 01/20/18 07:20 Direct Bilirubin 5.1 mg/dL (0.0-0.2) H 01/17/18 14:22 AST 37 U/L (15-37) D 01/20/18 07:20 ALT 165 U/L (12-78) H D 01/20/18 07:20 Alkaline Phosphatase 150 U/L (45-117) H 01/20/18 07:20 Total Protein 6.4 g/dl (6.4-8.2) 01/20/18 07:20 Albumin 3.1 g/dl (3.4-5.0) L 01/20/18 07:20 Lipase 260 U/L (73-393) 01/20/18 07:20 lipase now normal LFTs down K/Phos little low - ....Imaging Chest X-ray: Report Reviewed (no acute findings) Problem List - Problems (1) Acute gallstone pancreatitis Assessment/Plan: MRCP neg for cbd stones, ductal dilation; + sig pancreatitis GI consult noted, pt does not appear to need ERCP tolerated clears, yeast distiller epigastric NPO now - would keep today in case OR time opens continue IVF continue to trend labs pain meds prn, nonnarcotics first line GI/DVT prophylaxis Plan OR for tomorrow 9am if no OR time today Code(s): K85.10 - BILIARY ACUTE PANCREATITIS WITHOUT NECROSIS OR INFECTION (2) Calculus of gallbladder and bile duct with obstruction without cholecystitis Assessment/Plan: see above Code(s): K80.71 - CALCULUS OF GB AND BILE DUCT W/O CHOLECYST W OBSTRUCTION (3) Generalized abdominal pain Assessment/Plan: improving Code(s): R10.84 - GENERALIZED ABDOMINAL PAIN (4) Hep C w/o coma, chronic Assessment/Plan: treated 3 years ago with [facility] Code(s): B18.2 - CHRONIC VIRAL HEPATITIS C
--- NOTE | 2018-01-20 18:31 | PN ---
Progress Note, Physician Chief Complaint: Biliary pancreatitis History of Present Illness: NAD sitting in the lounge abdominal pain on palpation NPO for or today or early AM - Current Medication List Current Medications: Active Medications Potassium Chloride/Sodium Chloride (1/2ns+20meq Kcl) 20 meq in 1,000 mls @ 83 mls/hr IV ASDIR MEIR Last Admin: 01/20/18 15:24 Dose: 83 mls/hr Ketorolac Tromethamine (Toradol Injection -) 15 mg IVPUSH Q6H PRN PRN Reason: PAIN LEVEL 7 - 10 Stop: 01/22/18 18:23 Last Admin: 01/20/18 15:18 Dose: 15 mg - Objective Vital Signs: Vital Signs Temperature 98.7 F 01/20/18 14:45 Pulse Rate 76 01/20/18 14:45 Respiratory Rate 18 01/20/18 14:45 Blood Pressure 153/71 01/20/18 14:45 O2 Sat by Pulse Oximetry (%) 99 01/20/18 09:00 Constitutional: Yes: Well Nourished, No Distress, Calm Cardiovascular: Yes: Regular Rate and Rhythm Respiratory: Yes: Regular Gastrointestinal: Yes: Normal Bowel Sounds, Tenderness (RUQ,RLQ) Musculoskeletal: Yes: WNL Extremities: Yes: WNL Edema: No Peripheral Pulses WNL: Yes Neurological: Yes: Alert, Oriented Psychiatric: Yes: Alert, Oriented Labs: CBC, BMP 01/20/18 07:20 01/20/18 07:20 INR, PTT INR 1.07 (0.83-1.09) 01/17/18 14:22 Problem List - Problems (1) Acute gallstone pancreatitis Code(s): K85.10 - BILIARY ACUTE PANCREATITIS WITHOUT NECROSIS OR INFECTION
[2018-01-21] MEDS: SODIUM CHLORIDE 0.45%/POT 20 MEQ/1,000 ML INFUS.BAG IV SCH (04:29)
[2018-01-21 07:33] LABS: ALBUMIN 2.8 g/dl (3.4-5.0); ALK PHOS 122 U/L (45-117); ANION GAP 6 (8-16); BILIRUBIN,TOTAL 0.7 mg/dL (0.2-1.0); BLOOD UREA NITROGEN 12 mg/dL (7-18); CALCIUM 8.8 mg/dL (8.5-10.1); CHLORIDE 107 mmol/L (98-107); CO2 30 mmol/L (21-32); CREATININE 0.8 mg/dL (0.7-1.3); GLUCOSE,RANDOM 94 mg/dL (74-106); POTASSIUM 4.1 mmol/L (3.5-5.1); SGOT/AST 23 U/L (15-37); SGPT/ALT 111 U/L (12-78); SODIUM 143 mmol/L (136-145); TOT PROT 5.9 g/dl (6.4-8.2)
[2018-01-21 07:40] LABS: LIPASE 242 U/L (73-393)
[2018-01-21 07:58] LABS: BASO % 0.4 % (0-2.0); EOS % 3.1 % (0-4.5); HEMATOCRIT 34.7 % (35.4-49); HEMOGLOBIN 12.3 GM/dL (11.7-16.9); MCH 32.8 pg (25.7-33.7); MCHC 35.5 g/dl (32.0-35.9); MEAN CELL VOLUME 92.3 fl (80-96); MEAN PLT VOLUME 7.6 fl (7.5-11.1); MONO % 11.5 % (3.8-10.2); PLATELET COUNT 172 K/MM3 (134-434); RBC 3.76 M/mm3 (4.00-5.60); RDW 12.9 % (11.9-15.9); WHITE BLOOD COUNT 6.6 K/mm3 (4.0-10.0)
--- NOTE | 2018-01-21 08:29 | PN ---
Progress Note, Physician History of Present Illness: less pain - Current Medication List Current Medications: Active Medications Potassium Chloride/Sodium Chloride (1/2ns+20meq Kcl) 20 meq in 1,000 mls @ 83 mls/hr IV ASDIR MEIR Last Admin: 01/21/18 04:29 Dose: 83 mls/hr Ketorolac Tromethamine (Toradol Injection -) 15 mg IVPUSH Q6H PRN PRN Reason: PAIN LEVEL 7 - 10 Stop: 01/22/18 18:23 Last Admin: 01/20/18 21:27 Dose: 15 mg - Objective Vital Signs: Vital Signs Temperature 97.4 F L 01/21/18 02:00 Pulse Rate 58 L 01/21/18 02:00 Respiratory Rate 18 01/21/18 02:00 Blood Pressure 138/71 01/21/18 02:00 O2 Sat by Pulse Oximetry (%) 99 01/20/18 09:00 Cardiovascular: Yes: Regular Rate and Rhythm Respiratory: Yes: Regular, CTA Bilaterally Gastrointestinal: Yes: Normal Bowel Sounds, Soft, Tenderness Labs: CBC, BMP 01/21/18 06:15 INR, PTT INR 1.07 (0.83-1.09) 01/17/18 14:22 Problem List - Problems (1) Acute gallstone pancreatitis Assessment/Plan: -IV ABX -GI AND SURGERY ON BOARD -OR TODAY -FOLLOW LABS Code(s): K85.10 - BILIARY ACUTE PANCREATITIS WITHOUT NECROSIS OR INFECTION
[2018-01-21] MEDS ORDERED: ONDANSETRON 4 MG/2 ML VIAL IVPUSH PRN ×2 (08:45→10:16)
[2018-01-21] MEDS ORDERED: IBUPROFEN 800 MG/8 ML IJ IVPB PRN (08:45)
[2018-01-21] MEDS ORDERED: BUPIVACAINE HCL/PF 0.5% (5MG/ML) 10 ML VIAL ONE (08:47)
[2018-01-21] MEDS ORDERED: ROCURONIUM BROMIDE 50 MG/5 ML VIAL ONE ×2 (09:03→10:12)
[2018-01-21] MEDS ORDERED: MIDAZOLAM HCL 2 MG/2 ML SINGLE DOSE VIAL ONE (09:03)
[2018-01-21] MEDS ORDERED: PROPOFOL 20 ML ONE ×2 (09:03→10:44)
[2018-01-21] MEDS ORDERED: DESFLURANE GAS 240 ML BOTTLE IH ONE (09:13)
[2018-01-21] MEDS ORDERED: CEFOXITIN SODIUM 2 GM IVPB ONE (09:27)
[2018-01-21] MEDS ORDERED: cefOXitin SODIUM 2 GM VIAL (RESTRICTED TO ID) IVPB ONE (09:36)
[2018-01-21] MEDS ORDERED: DEXAMETHASONE SOD PHOSPHATE 4 MG/1 ML VIAL ONE (09:55)
[2018-01-21] MEDS ORDERED: BUPIVACAINE HCL/PF (5 MG/ML) 30 ML VIAL IJ ONE ×2 (10:07→10:55)
[2018-01-21] MEDS ORDERED: PROMETHAZINE HCL 25 MG/1 ML VIAL IVPUSH PRN (10:16)
[2018-01-21] MEDS ORDERED: LACTATED RINGERS SOLUTION 1,000 ML IV SCH (10:30)
[2018-01-21] MEDS ORDERED: GLYCOPYRROLATE 0.2 MG/1 ML VIAL ONE (10:43)
[2018-01-21] MEDS ORDERED: NEOSTIGMINE METHYLSULFATE 0.5 MG/ML - 10 ML MDV ONE (10:44)
[2018-01-21] MEDS ORDERED: BENZOIN/ALOE VERA/STORAX/TOLU 58 ML BOTTLE ONE (11:05)
--- NOTE | 2018-01-21 11:22 | OP ---
Operative Note - Note: Operative Date: 01/21/18 Pre-Operative Diagnosis: biliary pancreatitis Operation: laparoscopic cholecystectomy Findings: nodular liver surface, contracted gallbladder with multiple stones under dense omental adhesions; critical view obtained, Weck clips used on cystic duct and artery; small hole in gb from grasper, couple of small yellow stones retrieved, no bile spill Post-Operative Diagnosis: Same as Pre-op Surgeon: Shantanu Heredia Tower Watchman: Kelvin Theodore (demetri/Gerardo Macedo MS3) Anesthesiologist/BLOG WRITER: Latricia Valles Anesthesia: General, Local (20ml 0.5% marcaine) Specimens Removed: gallbladder to pathology Estimated Blood Loss (mls): 15 Fluid Volume Replaced (mls): 700 (crystalloid) Operative Report Dictated: Yes
[2018-01-21] MEDS: LACTATED RINGERS SOLUTION 1,000 ML IV SCH ×2 (13:33→20:30)
[2018-01-21] MEDS: ACETAMINOPHEN 325 MG TABLET (FP) PO SCH ×2 (14:28→21:21)
[2018-01-21] MEDS ORDERED: PT OWN MED DRAWER 7, Y5N ONE (15:09)
[2018-01-21] MEDS: CEFOXITIN SODIUM 2 GM in DEXTROSE 5%-WATER - 100 ML IVPB SCH ×2 (15:29→21:17)
--- NOTE | 2018-01-21 16:28 | EKG ---
Test Reason : Blood Pressure : / mmHG Vent. Rate : 076 BPM Atrial Rate : 076 BPM P-R Int : 152 ms QRS Dur : 088 ms QT Int : 382 ms P-R-T Axes : 058 029 019 degrees QTc Int : 429 ms NORMAL SINUS RHYTHM NORMAL ECG NO PREVIOUS ECGS AVAILABLE Confirmed by Cameron Delvalle MD ([id number]) on 01/21/2018 4:28:00 PM Referred By: Confirmed By:Cameron Delvalle MD
[2018-01-21] MEDS: IBUPROFEN 600 MG TABLET (FP) PO SCH (18:23)
[2018-01-21] MEDS: oxyCODONE HCL 5 MG TABLET PO PRN (18:24)
[2018-01-22] MEDS: oxyCODONE HCL 5 MG TABLET PO PRN ×2 (01:50→09:28)
[2018-01-22] MEDS: IBUPROFEN 600 MG TABLET (FP) PO SCH ×4 (01:53→18:11)
[2018-01-22] MEDS: CEFOXITIN SODIUM 2 GM in DEXTROSE 5%-WATER - 100 ML IVPB SCH (03:01)
[2018-01-22] MEDS: ACETAMINOPHEN 325 MG TABLET (FP) PO SCH ×2 (03:11→09:18)
[2018-01-22] MEDS: LACTATED RINGERS SOLUTION 1,000 ML IV SCH ×2 (05:52→09:19)
--- NOTE | 2018-01-22 08:19 | PN ---
Progress Note (short form) - Note Progress Note: ANESTHESIOLOGY POST-OP CHECK 67M s/p laparoscopic cholecysectomy under general anesthesia, POD #1. No acute complaints. Pain 5/10 and tolerable. Denies N/V. Vital Signs Temperature 97.5 F L 01/22/18 06:00 Pulse Rate 56 L 01/22/18 06:00 Respiratory Rate 20 01/22/18 06:00 Blood Pressure 136/70 01/22/18 06:00 O2 Sat by Pulse Oximetry (%) 96 01/21/18 21:00 Active Medications Acetaminophen (Tylenol -) 650 mg PO Q6H ON LICENSE OF [facility] Last Admin: 01/22/18 03:11 Dose: Not Given Fentanyl (Sublimaze Injection -) 50 mcg IVPUSH [id number] PRN PRN Reason: PAIN-PACU ORDER X 4 DOSES ONLY Lactated Ringer's (Lactated Ringers Solution) 1,000 mls @ 125 mls/hr IV ASDIR ON LICENSE OF [facility] Last Admin: 01/22/18 05:52 Dose: 125 mls/hr Ibuprofen (Caldolor Injection -) 800 mg IVPB Q6H PRN PRN Reason: Pain - Pacu Ibuprofen (Motrin -) 600 mg PO Q6H ON LICENSE OF [facility] Last Admin: 01/22/18 05:54 Dose: 600 mg Ondansetron HCl (Zofran Injection) 4 mg IVPUSH Q6H PRN PRN Reason: NAUSEA AND/OR VOMITING Oxycodone HCl (Roxicodone -) 5 mg PO Q6H PRN PRN Reason: Pain Level 7 - 10 BREAKTHROUGH Last Admin: 01/22/18 01:50 Dose: 5 mg Promethazine HCl (Phenergan Injection -) 12.5 mg IVPUSH Q6H PRN PRN Reason: NAUSEA-FOR RESCUE AFTER 15 MIN Gen : Awake, no apparent distress No apparent anesthesia complications. Pain well controlled. Continue management as per primary team.
--- NOTE | 2018-01-22 10:35 | PN ---
Progress Note, Physician History of Present Illness: Pt with biliary pancreatitis, s/p lap al yesterday. Seen and examined in room , examined in bed. Voiding and passing gas, small BM. Tolerating diet, pain controlled with minimal meds, but did have oxycodone this morning after ibuprofen, refused tylenol. Ambulating well. - Current Medication List Current Medications: Active Medications Acetaminophen (Tylenol -) 650 mg PO Q6H [facility] Last Admin: 01/22/18 09:18 Dose: Not Given Ibuprofen (Motrin -) 600 mg PO Q6H [facility] Last Admin: 01/22/18 05:54 Dose: 600 mg Oxycodone HCl (Roxicodone -) 5 mg PO Q6H PRN PRN Reason: Pain Level 7 - 10 BREAKTHROUGH Last Admin: 01/22/18 09:28 Dose: 5 mg - Objective Vital Signs: Vital Signs Temperature 97.2 F L 01/22/18 09:15 Pulse Rate 58 L 01/22/18 09:15 Respiratory Rate 20 01/22/18 09:15 Blood Pressure 152/70 01/22/18 09:15 O2 Sat by Pulse Oximetry (%) 96 01/21/18 21:00 Constitutional: Yes: Well Nourished, No Distress, Calm Eyes: Yes: Conjunctiva Clear, EOM Intact. No: Sclera Icterus HENT: Yes: Atraumatic, Normocephalic Gastrointestinal: Yes: Soft, Distention (minimal), Tenderness (minimal incisional only), Tenderness, Epigastrium (mild to deep palpation). No: Tenderness, Rebound Extremities: Yes: Other (left knee incision healing). No: Cool, Cyanosis Integumentary: Yes: Incision (L knee; abdominal x4, dressed). No: Jaundice, Rash Wound/Incision: Yes: Steri Strips (under dressings), Dressing Dry and Intact (x3 , umbilical site with small serosang staining - changed), Dressing Removed ( umbilical site changed for clean dressing, steri's intact) Neurological: Yes: Alert, Oriented. No: Unsteady Gait Labs: no new labs Problem List - Problems (1) Acute gallstone pancreatitis Assessment/Plan: POD1 s/p laparoscopic cholecystectomy doing well pain controlled with po meds, pt encouraged NOT to use narcotic unless absolutely necessary he has Percocet at home already, if needed advised to use stool softener if he does use the Percocet ambulating, tolerating diet + bowel function dressings ok ok for d/c home from surgical standpoint instructions in d/c plan Dr. Reynoso aware Code(s): K85.10 - BILIARY ACUTE PANCREATITIS WITHOUT NECROSIS OR INFECTION (2) Calculus of gallbladder and bile duct with obstruction without cholecystitis Assessment/Plan: see above Code(s): K80.71 - CALCULUS OF GB AND BILE DUCT W/O CHOLECYST W OBSTRUCTION (3) Generalized abdominal pain Assessment/Plan: much improved, minimal residual discomfort, mostly incisional Code(s): R10.84 - GENERALIZED ABDOMINAL PAIN (4) Hep C w/o coma, chronic Assessment/Plan: treated 3 years ago with Fatoumata Code(s): B18.2 - CHRONIC VIRAL HEPATITIS C
[2018-01-22] MEDS ORDERED: oxyCODONE HCL 5 MG TABLET PO PRN (10:39)
[2018-01-22 14:23] VITALS: BP 133/65; PULSE 67; TEMP 97.9
[2018-01-22] MEDS ORDERED: ACETAMINOPHEN 325 MG TABLET (FP) PO SCH (15:00)
--- NOTE | 2018-01-22 15:45 | PATH ---
Surgical Pathology Report Patient Name: CALE MCCOY [facility]. Rec. #: [id number] /Age/Gender: 1950 (Age: 67) / M Account: [id number] Location: [address] [place] [address]/[facility] Taken: 01/21/2018 Received: 01/21/2018 Reported: 01/22/2018 Physicians: Bear Bravo M.D. Specimen(s) Received GALLBLADDER Clinical History Cholelithiasis, gallstone pancreatitis Final Diagnosis GALLBLADDER, CHOLECYSTECTOMY: CHRONIC CHOLECYSTITIS AND CHOLELITHIASIS. Electronically Signed Romelia Lyon M.D. Gross Description Received in formalin, labeled "gallbladder," is a 6.0 x 2.8 x 2.0 cm. gallbladder with a 0.2 cm. in length portion of cystic duct attached. The outer surface is muhammad-pink and varies from smooth to shaggy. The lumen contains muhammad, tenacious bile as well as abundant car-green choleliths ranging from 0.3-0.6 cm in greatest dimension. The mucosa is hyperemic and focally eroded. The wall of the gallbladder ranges from 0.1-0.3 cm. in thickness. [employer] sections are submitted in one cassette. 01/21/201801/21/2018
[2018-01-22 15:56] VITALS: BMI 25.3
--- NOTE | 2018-01-22 15:58 | DS ---
Physical Examination Vital Signs: Vital Signs Temperature 97.9 F 01/22/18 14:22 Pulse Rate 67 01/22/18 14:22 Respiratory Rate 18 01/22/18 14:22 Blood Pressure 133/65 01/22/18 14:22 O2 Sat by Pulse Oximetry (%) 97 01/22/18 09:00 Constitutional: Yes: No Distress Eyes: Yes: WNL HENT: Yes: WNL Neck: Yes: WNL Cardiovascular: Yes: WNL Respiratory: Yes: WNL Gastrointestinal: Yes: Tenderness Renal/: Yes: WNL Musculoskeletal: Yes: WNL Extremities: Yes: WNL Edema: No Peripheral Pulses WNL: Yes Integumentary: Yes: WNL Wound/Incision: Yes: Clean/Dry Neurological: Yes: WNL ...Motor Strength: WNL Psychiatric: Yes: WNL Labs: CBC, BMP 01/21/18 06:15 01/21/18 06:15 Discharge Summary Reason For Visit: BILIARY TRACT OBSTRUCTION Current Active Problems Acute gallstone pancreatitis (Acute) Biliary obstruction (Acute) Calculus of gallbladder and bile duct with obstruction without cholecystitis ( Acute) Fever presenting with conditions classified elsewhere (Acute) Generalized abdominal pain (Acute) Hep C w/o coma, chronic (Acute) Nausea and vomiting (Acute) Procedures: Principal: [facility] Hospital Course: admitted cholidocolithisis, needing laproscopic cholcystectomy, recovering well. dc planning Condition: Improved - Instructions Diet, Activity, Other Instructions: Postoperative instructions: You had a laparoscopic cholecystectomy for gallstone pancreatitis on 01/21/[address] Shantanu Heredia of [facility]. Activity: Resume your usual activities gradually, but no heavy exertion or lifting more than 10-15 pounds for 1 month. Remove dressings 48 hours after surgery; sticky tapes underneath will fall off by themselves. You may shower daily starting then, just pat the incision areas dry. No bath or swimming until skin incisions are healed. You might need a small gauze or bandaid over the belly-button incision for a few days before or after the sticky tapes fall off, if there is any seepage of fluid. Eat lightly at first, but advance to your usual diet as tolerated. Pain: For pain, you may use and alternate Tylenol (acetaminophen) and/or ibuprofen every 6 hours each as needed; this means that you can take one OR the other at 3-hour intervals. If you are prescribed a Tylenol/narcotic combination (Percocet) for severe pain, use it instead of plain Tylenol as needed and switch back when your pain starts decreasing. Do not take more than 4000mg of acetaminophen in a day. Take medications as prescribed or indicated on the labeling. Follow-up: Call Dr. Heredia's office at [phone] to make your postop appointment (Saturday ~3 weeks after surgery). Clinic is held in the [facility] on the first floor of [facility]. Call the office if you have: * increasing pain not responsive to pain medication * fever of 101F or higher * vomiting * unusual or increasing bleeding or drainage from wounds * increasing redness or swelling at wound sites Also, see your primary medical doctor within 1-[address] price in 1 week Referrals: Ken Price MD [Primary Care Provider] - Disposition: HOME - Home Medications Comprehensive Discharge Medication List: Ambulatory Orders Vitamin E 1,000 unit PO DAILY 12/22/13 Multivitamin [One Daily] 1 each PO DAILY 04/15/17
== END 2018-01-22 18:42 | disposition home or self-care (01) | DRG 418 ==
LOC: JER 12:33 → JERBED 16:40 → J5S 18:11
PROVIDERS: ADMIT Family Medicine; ATTEND Family Medicine
PROC: 0DNU4ZZ Release Omentum, Percutaneous Endoscopic Approach (ICD-10-PCS; 2018-01-21)
PROC: 0FT44ZZ Resection of Gallbladder, Percutaneous Endoscopic Approach (ICD-10-PCS; principal; 2018-01-21 09:00)
DX: K85.10 Biliary acute pancreatitis without necrosis or infection (principal); K80.71 Calculus of gallbladder and bile duct without cholecystitis with obstruction; B18.2 Chronic viral hepatitis C; K21.9 Gastro-esophageal reflux disease without esophagitis; E78.5 Hyperlipidemia, unspecified; M19.90 Unspecified osteoarthritis, unspecified site; R11.2 Nausea with vomiting, unspecified; R50.81 Fever presenting with conditions classified elsewhere; K66.0 Peritoneal adhesions (postprocedural) (postinfection); Z87.891 Personal history of nicotine dependence; Z96.652 Presence of left artificial knee joint
CPT/HCPCS: 36415; 71045-TC-FY; 74182-TC; 76705-TC; 80053; 82248; 83605; 83690; 83735; 84100; 85025; 85027; 85610; 85730; 86850; 86900; 86901; 88304-TC; 93005; 93010; 94010; 94760; 99285-25; J0131; J3480; J7030